=== PATIENT | male | born 1980 | race Caucasian/White ===

== ENCOUNTER 2018-11-28 20:23 | Emergency (ER) | payer SELFPAY ==
[2018-11-28 20:24] VITALS: BP 117/88; PULSE 91; RESP 14; TEMP 36.6; O2SAT 97; BMI 25.5
[2018-11-28 20:30] VITALS: BP 113/88; PULSE 94; RESP 10; O2SAT 97
[2018-11-28 21:24] VITALS: BP 108/80; PULSE 108; RESP 12; O2SAT 98
--- NOTE | 2018-11-28 21:42 | ED.DCSUM_ITS ---
- ER Visit Summary Date of Service: 11/28/18 Chief Complaint: Heroin overdose History of Present Illness: The patient is a 38 M who presents with heroin overdose that occurred today. His friend found him laying on the floor with a needle in his arm. EMS administered intranasal Narcan and the patient became more awake and alert. Patient states he does not use heroin every day. Patient states he knows he needs to quit but does not want to help with that at this time. Patient denies any suicidal or homicidal ideations. Patient denies any chest pain or shortness of breath. Patient admits to an episode of vomiting after Narcan was administered. Physical Examination: Vital signs are stable. Patient is afebrile. Patient is in no acute distress. Oral mucosa is pink and moist. Neck is supple. Trachea is midline. There is no JVD noted. Heart was regular rate and rhythm. Lungs are clear and equal bilaterally. Abdomen is soft. Bowel sounds are normal. There is no tenderness. There is no guarding noted. Skin is warm dry. Cranial nerves II through XII are intact. There are no focal motor or sensory deficits noted. Emergency Department Course and Treatment: Patient was observed here in the emergency department. Patient remained awake and alert. Patient had no episodes of hypoxia or somnolence here in the emergency department. Patient was instructed to follow-up with his primary care physician in 5 to 7 days. Patient was instructed to stop using heroin. Smoking cessation was also discussed. Patient understood and was agreeable with the plan. All questions were answered. Disposition: Discharge home Impression: Heroin overdose This note was generated with [employer] dictation software. It may contain incorrect words, spelling, and punctuation that were not noted in review of the chart prior to signing ED Disposition - Plan for ED Patient: Disposition: Home or Assisted Living Diagnosis: Heroin overdose Instructions: OVERDOSE, Opiate Referrals: Care Physician,No Primary [Primary Care Provider] - Vahe Rivera DO [NON CLINICAL AFFILIATE] - 5-7 Days
[2018-11-28 22:00] VITALS: BP 97/75; PULSE 74; RESP 18; O2SAT 97
[2018-11-28 22:31] VITALS: BP 94/63; PULSE 108; RESP 16; O2SAT 98
== END 2018-11-28 22:33 | disposition home or self-care (01) ==
PROVIDERS: Emergency Provider Emergency Medicine
DX: T40.1X1A Poisoning by heroin, accidental (unintentional), initial encounter (principal); Y92.9 Unspecified place or not applicable; F17.200 Nicotine dependence, unspecified, uncomplicated
CPT/HCPCS: 99284; J7030